=== PATIENT | female | born 1980 | race Caucasian/White ===

== ENCOUNTER → 2024-02-26 18:37 | Outpatient (REF) | payer BC, SELFPAY | LOC: MRI 3T 18:37 | PROVIDERS: ATTENDING PHYSICIAN Obstetrics & Gynecology; FAMILY PHYSICIAN Family Medicine | DX: R92.343 Mammographic extreme density, bilateral breasts (principal); Z80.3 Family history of malignant neoplasm of breast; Z91.89 Other specified personal risk factors, not elsewhere classified | CPT/HCPCS: 77049; A9585 ==

== ENCOUNTER → 2024-03-30 11:01 | Outpatient (REF) | payer BC, SELFPAY | LOC: WDC 11:01 | PROVIDERS: ATTENDING PHYSICIAN Obstetrics & Gynecology; FAMILY PHYSICIAN Family Medicine | DX: R92.8 Other abnormal and inconclusive findings on diagnostic imaging of breast (principal) | CPT/HCPCS: 76642 ==

== ENCOUNTER → 2024-10-07 18:59 | Outpatient (REF) | payer BC, SELFPAY | LOC: MRI 3T 18:59 | PROVIDERS: ATTENDING PHYSICIAN Obstetrics & Gynecology; FAMILY PHYSICIAN Family Medicine | DX: R92.8 Other abnormal and inconclusive findings on diagnostic imaging of breast (principal); Z91.89 Other specified personal risk factors, not elsewhere classified; Z80.3 Family history of malignant neoplasm of breast; R92.343 Mammographic extreme density, bilateral breasts | CPT/HCPCS: 77049; A9585 ==

== ENCOUNTER 2024-11-08 21:20 | Emergency (ER) | payer BC, SELFPAY ==
[2024-11-08 21:25] VITALS: BP 157/87
--- NOTE | 2024-11-08 23:08 | ED.GENMED ---
History of Present Illness
General
Chief Complaint: Musculo-Skeletal Complaint
Time Seen by Provider: 11/08/24 23:08
History of Present Illness
History of Present Illness:
TIME OF INITIAL ENCOUNTER: 11:10 PM
HPI: Yesterday morning, the patient awoke with posterior neck pain which she initially felt that she slept awkwardly and did not think too much of it. However the following night the pain dramatically worsened to the point that she was having a
headache but the pain is primarily localized to both sides of the back of the neck. The pain worsens with any attempted movement of the neck. She also notes that she has been having pain when she attempts to swallow more so on the right side. She
has taken ibuprofen and Tylenol and used 1 dose of her 's oxycodone without any significant relief.
EXAM:
GENERAL: The patient is tearful and appears very uncomfortable
HEENT: Moist oral mucosa
NECK: No palpable masses to the anterior neck, markedly decreased active range of motion of the cervical spine due to pain,
NEUROLOGIC: Excellent strength all extremities, no obvious coordination deficits
PSYCHIATRIC: Appears anxious and upset
EXTREMITIES: Nontender, no edema, moves all extremities equally
SKIN: No rash, no lesions
NUMBER AND COMPLEXITY OF PROBLEMS ADDRESSED AT THE ENCOUNTER
� Chronic conditions affecting care: No significant past medical history
� Acute Exacerbation and/or Progression of Chronic Illness: This is an acute problem
� Differential Diagnosis includes: Tension headache, cervical muscle strain, neck mass,
AMOUNT AND/OR COMPLEXITY OF DATA TO BE REVIEWED AND ANALYZED
� I performed an independent evaluation of and my interpretation is:
EKG:
CT: CT imaging of the head is unremarkable, CT of the neck is no acute abnormality however reversal of normal cervical lordosis is noted
X-rays:
Laboratory Studies: CBC and chemistries unremarkable
Other:
� Review of other/old records: I reviewed MRI report breast report from September 2024
� Clinical information was obtained by an independent historian: I spoke to her at bedside
� Prescriptions/Medications Considered but not given:
� Further testing considered but not performed:
RISK OF COMPLICATIONS AND/OR MORBIDITY OR MORTALITY OF PATIENT MANAGEMENT
� Social determinants of health affecting care: Lives at home, she is a refinery operator crude unit
� Discussion with other providers:
� Escalation of care including admission/observation vs risk of discharge considered: The patient appears very uncomfortable upon arrival. Will give IV Valium and Toradol and also check imaging. She is otherwise healthy.
ANY OTHER UPDATES:
1 AM: On reassessment after patient was given IV Valium and Toradol, she feels significantly improved. She appears more comfortable. Will give short course of p.o. Valium and prednisone.
Phy Exam
Physical Exam
Physical Exam:
See HPI
Course
Orders/Labs/Results
Orders:
Orders
11/08/24 23:15
Ketorolac [Toradol] 15 mg IV NOW STA
diazePAM [Valium Injection] 5 mg IV NOW STA
11/08/24 23:27
Basic Metabolic Panel Urgent
Complete Blood Count/With Diff Urgent
11/09/24 00:00
CT Head W/o Iv Contrast Urgent
Reason For Exam: new severe HARVEY
CT Neck With Iv Contrast Urgent
Reason For Exam: severe posterior pain; painful swallowing
Abnormal Lab Results
11/08/24
23:27
RBC 4.12 L 10^6/uL
(4.20-5.40)
Hct 36.7 L %
(37.0-47.0)
MCH 31.1 H pg
(27.0-31.0)
Glucose 103 H mg/dl
(70-99)
11/08/24 23:27
11/08/24 23:27
Vital Signs
Initial and Last Documented VS:
Initial Vital Signs
Temp Pulse Resp BP Pulse Ox
36.4 C 62 16 157/87 100
11/08/24 21:25 11/08/24 21:25 11/08/24 21:25 11/08/24 21:25 11/08/24 21:25
Last Documented Vital Signs
Temp Pulse Resp BP Pulse Ox
36.4 C 62 16 157/87 100
11/08/24 21:25 11/08/24 21:25 11/08/24 21:25 11/08/24 21:25 11/08/24 21:25
*Critical Care Note
Total Time (30-74mins, 75-104mins- exclusive of procedures): Not Applicable
ED Attending Note
-
Portions of this chart may have been created with voice recognition software.� Occasional wrong word or��sound alike� substitutions may have occurred due to the inherent limitations of voice recognition software.
Discharge Plan
Departure
Patient Disposition: Home (Routine Discharge)
Date of Disposition: 11/09/24
Time of Disposition: 01:08
Patient with high blood pressure during this ER visit?: Yes
Discharge Problem:
Acute cervical myofascial strain
Instructions: Muscle strain
Prescriptions:
New
diazepam [Valium] 5 mg tablet
5 mg PO BID PRN (Reason: muscle spasm) Qty: 14 0RF
prednisone 50 mg tablet
50 mg PO DAILY Qty: 5 0RF
Referrals:
Tamiko Spencer MD [Family Provider] -
Activity Restrictions/Additional Instructions:
The cause of your pain is unclear but could be related to a cervical strain. I am sending a prescription for prednisone to your pharmacy. While on prednisone I do not recommend that you take NSAIDs as they both can be very irritating to the
stomach. Try to limit the use of Valium as it has high addiction potential. Do not drive if you take Valium. Basic blood work is normal. Return here if worse or other concerns.
Interventions
Interventions:
*Risk Screen - Suicide Last Done: 11/08/24 21:25
*Neglect/Abuse Screening Last Done: 11/08/24 21:25
ED-Musculoskeletal Assessment Last Done: 11/08/24 22:54
Discharge Date and Time
Print Language: FRENCH
[2024-11-08] MEDS: TORADOL 15 MG IV (23:31)
[2024-11-08] MEDS: VALIUM INJECTION 5 MG IV (23:31)
[2024-11-08 23:47] LABS: % Basophils 0.6 % (0-2); % Eosinophils 1.2 % (0-6); % Immature Granulocytes 0.2 % (0-0.5); % Lymphocytes 21.8 % (20.5-51.1); % Monocytes 5.7 % (1.7-9.3); % Neutrophils 70.5 % (42.2-75.2); Absolute Basophils 0.1 10^3/uL (0-0.2); Absolute Eosinophils 0.1 10^3/uL (0-0.7); Absolute Monocytes 0.5 10^3/uL (0.1-0.6); Absolute Neutrophils 6.5 10^3/uL (1.4-6.5); Hematocrit 36.7 % (37.0-47.0); Hemoglobin 12.8 g/dL (12.0-16.0); Mean Corp Hgb Conc. 34.9 g/dL (33.0-37.0); Mean Corpuscular Hgb 31.1 pg (27.0-31.0); Mean Corpuscular Volume 89.1 fL (81.0-99.0); Nucleated Red Blood Cells % 0 %; Platelet Count 208 10^3/uL (130-400); Red Blood Cell Count 4.12 10^6/uL (4.20-5.40); Red Cell Dist. Width 12.5 % (11.5-14.5); White Blood Cell Count 9.2 10^3/uL (4.8-10.8)
[2024-11-08 23:58] LABS: Blood Urea Nitrogen 17 mg/dl (7-17); Calcium 9.2 mg/dl (8.4-10.2); Carbon Dioxide 27 mmol/L (22-30); Chloride 105 mmol/L (98-107); Glucose 103 mg/dl (70-99); Potassium 4.3 mmol/L (3.5-5.1); Sodium 139 mmol/L (135-145); eGFR > 60.00
[2024-11-09] VITALS: BP 109/69
== END 2024-11-09 01:45 | disposition home or self-care (01) ==
LOC: EMR 21:20
PROVIDERS: EMERGENCY PHYSICIAN Emergency Medicine; FAMILY PHYSICIAN Family Medicine
DX: S16.1XXA Strain of muscle, fascia and tendon at neck level, initial encounter (principal); R51.9 Headache, unspecified; X58.XXXA Exposure to other specified factors, initial encounter
CPT/HCPCS: 96374; 96375; 99284; 70450; 70491; 80048; 85025; Q9967

== ENCOUNTER → 2025-02-27 11:21 | Outpatient (REF) | payer BC, SELFPAY | LOC: WDC 11:21 | PROVIDERS: ATTENDING PHYSICIAN Surgery; FAMILY PHYSICIAN Family Medicine | DX: Z12.31 Encounter for screening mammogram for malignant neoplasm of breast (principal) | CPT/HCPCS: 77063; 77067 ==

== ENCOUNTER → 2025-04-26 10:52 | Outpatient (REF) | payer BC, SELFPAY | LOC: WDC 10:52 | PROVIDERS: ATTENDING PHYSICIAN Surgery; FAMILY PHYSICIAN Family Medicine | DX: R92.2 Inconclusive mammogram (principal) | CPT/HCPCS: 76641 ==